=== PATIENT | female | born 1945 | race Caucasian/White ===

== ENCOUNTER 2023-11-06 13:36 | Inpatient (IN) | payer OTHER, SELFPAY ==
[2023-11-05] VITALS (8 sets, daily range): BP systolic 125–160; BP diastolic 50–87; BMI 46.3; BMI 45.5
--- NOTE | 2023-11-05 09:58 | ED.GENMED ---
History of Present Illness
<CLEOPATRA Good - Last Filed: 11/05/23 12:42>
General
Chief Complaint: Cough
Source: patient
Exam Limitations: none
Time Seen by Provider: 11/05/23 09:49
Nursing documentation reviewed up to this point in time: agreed with
Travel History
Have you had any contact with someone who has COVID-19?: No
Do you have any symptoms of coronavirus? Fever > 100 degrees, chills, cough, shortness of breath, sore throat, loss of taste or smell, muscle aches, or headache?: Yes
Symptoms:: sob
History of Present Illness
History of Present Illness:
78 yr. old female with past medical history of asthma sleep apnea hypertension diabetes presents to the ER for evaluation. Patient started with cough for the past week and subjective chills. She reports she has been under a lot of stress her
daughter recently from cancer 1 week ago. She has been exposed to a lot of family at her house. This morning she did cough up blood which the prompted her to come to the ER. SHe reports she coughed up what she describes as strands of
dark colored and some bright red blood. She does feel short of breath.
Past History
<CLEOPATRA Good - Last Filed: 11/05/23 12:42>
Past History
ED Past Medical History: HTN, Hypercholesterolemia and NIDDM
ED Past Surgical History: Gynecological and Orthopedic
Social History
Living: with family
Review of Systems
<CLEOPATRA Good - Last Filed: 11/05/23 12:42>
Review of Systems
Allergies reviewed?: Yes
Other source history: family
All Other Systems: ROS reviewed and negative except as documented in HPI and ROS
Constitutional: Reports fever (Subjective fevers) and chills
Respiratory: Reports cough, hemoptysis and trouble breathing
Cardiac: Reports no symptoms
ABD/GI: Reports no symptoms
: Reports no symptoms
Musculoskeletal: Reports no symptoms
Skin: Reports no symptoms
Neurological: Reports no symptoms
Psychiatric: Reports no symptoms
Phy Exam
<CLEOPATRA Good - Last Filed: 11/05/23 12:42>
General Physical Exam
General Presentation: no apparent distress
General age: appears stated age
General Skin: warm and dry
General Mental: alert
General Hydration: appears well hydrated
Cardiovascular Exam
Cardiovascular Exam: regular rate/rhythm, no murmur and normal peripheral pulses
Pulmonary Exam
Pulmonary Exam: generalized wheezing and other (coughing )
Neurological Exam
Neurological Exam: alert and oriented x3
Musculoskeletal Exam
Musculoskeletal Exam: full ROM
Skin Exam
Skin Exam: normal color and warm/dry
Psychiatric Exam
Psychiatric Exam: normal mood/affect
Course
<CLEOPATRA Good - Last Filed: 11/05/23 12:42>
Orders/Labs/Results
Orders:
Orders
11/05/23 09:51
Electrocardiogram (*1) Urgent
Reason for Study: Other
Other Reason for Exam: Possible Sepsis
EKG- Treatment ONCE
IV Insert/Care/Rem.- Treatment PRN
11/05/23 09:52
CXR Port [CR Chest Portable - 1 View] Urgent
Comment:
Reason For Exam: sob hemoptysis
Reason Study Needs to be Portable: Unable to Transport
11/05/23 10:00
Comprehensive Metabolic Panel Urgent
Blood Culture Q30M
COURT Source: Blood/Venous
Specimen Description:
Comment: FROM 2 SEPARATE SITES
11/05/23 10:01
COVID-19 Antigen Urgent
Source: Nasal Swab
Complete Blood Count/With Diff Urgent
Lactic Acid Q4H
Comment: ON ICE, CANCEL 2ND ORDER IF FIRST LACTIC ACID LEVEL <2
Influenza A+B Rapid Molecular Urgent
COURT Source: Nasal Swab
Specimen Description:
11/05/23 10:07
Albuterol Nebs [Ventolin Nebules] 2.5 mg INH R NOW STA
11/05/23 10:12
Dexamethasone Sod Phosphate [Decadron] 6 mg IV NOW STA
11/05/23 10:30
CT Chest Pe Study Urgent
Comment:
Reason For Exam: Short of breath/hemoptysis
0.9% Sodium Chloride 500 ml [Nss] 500 ml IV BOLUS
Dexamethasone Sod Phosphate [Decadron] 4 mg IV NOW STA
11/05/23 10:37
Blood Culture Q30M
COURT Source: Blood/Venous
Specimen Description:
Comment: FROM 2 SEPARATE SITES
Abnormal Lab Results
11/05/23 11/05/23
10:00 10:01
Abs Immat Gran (auto) 0.1 H 10^3/uL
(0-0.05)
Absolute Monos (auto) 0.7 H 10^3/uL
(0.1-0.6)
Immature Gran % 0.9 H %
(0-0.5)
Lymphocytes % 17.8 L %
(20.5-51.1)
Monocytes % 9.5 H %
(1.7-9.3)
Sodium 130 L mmol/L
(135-145)
Creatinine 0.5 L mg/dL
(0.6-1.0)
Glucose 266 H mg/dl
(70-99)
AST 38 H U/L
(14-36)
11/05/23 10:01
11/05/23 10:00
Vital Signs
Initial and Last Documented VS:
Initial Vital Signs
Temp Pulse Resp BP Pulse Ox
101.1 F H 100 18 160/86 93
11/05/23 09:45 11/05/23 09:45 11/05/23 09:45 11/05/23 09:45 11/05/23 09:45
Last Documented Vital Signs
Temp Pulse Resp BP Pulse Ox
99.7 F 93 17 125/56 94
11/05/23 11:41 11/05/23 12:15 11/05/23 12:15 11/05/23 12:00 11/05/23 12:15
Research Psychologist consulted with Physician
Research Psychologist consulted with physician?: Yes
Name of Physician Consulted: Kvng
<Bruce Calderon MD - Last Filed: 11/05/23 10:32>
Orders/Labs/Results
Orders:
Orders
11/05/23 09:51
Electrocardiogram (*1) Urgent
Reason for Study: Other
Other Reason for Exam: Possible Sepsis
EKG- Treatment ONCE
IV Insert/Care/Rem.- Treatment PRN
11/05/23 09:52
CXR Port [CR Chest Portable - 1 View] Urgent
Comment:
Reason For Exam: sob hemoptysis
Reason Study Needs to be Portable: Unable to Transport
11/05/23 10:00
Comprehensive Metabolic Panel Urgent
Blood Culture Q30M
COURT Source: Blood/Venous
Specimen Description:
Comment: FROM 2 SEPARATE SITES
11/05/23 10:01
COVID-19 Antigen Urgent
Source: Nasal Swab
Complete Blood Count/With Diff Urgent
Lactic Acid Q4H
Comment: ON ICE, CANCEL 2ND ORDER IF FIRST LACTIC ACID LEVEL <2
Influenza A+B Rapid Molecular Urgent
COURT Source: Nasal Swab
Specimen Description:
11/05/23 10:07
Albuterol Nebs [Ventolin Nebules] 2.5 mg INH R NOW STA
11/05/23 10:12
Dexamethasone Sod Phosphate [Decadron] 6 mg IV NOW STA
11/05/23 10:30
CT Chest Pe Study Urgent
Comment:
Reason For Exam: Short of breath/hemoptysis
0.9% Sodium Chloride 500 ml [Nss] 500 ml IV BOLUS
Dexamethasone Sod Phosphate [Decadron] 4 mg IV NOW STA
11/05/23 10:37
Blood Culture Q30M
COURT Source: Blood/Venous
Specimen Description:
Comment: FROM 2 SEPARATE SITES
Abnormal Lab Results
11/05/23 11/05/23
10:00 10:01
Abs Immat Gran (auto) 0.1 H 10^3/uL
(0-0.05)
Absolute Monos (auto) 0.7 H 10^3/uL
(0.1-0.6)
Immature Gran % 0.9 H %
(0-0.5)
Lymphocytes % 17.8 L %
(20.5-51.1)
Monocytes % 9.5 H %
(1.7-9.3)
Sodium 130 L mmol/L
(135-145)
Creatinine 0.5 L mg/dL
(0.6-1.0)
Glucose 266 H mg/dl
(70-99)
AST 38 H U/L
(14-36)
11/05/23 10:01
11/05/23 10:00
Vital Signs
Initial and Last Documented VS:
Initial Vital Signs
Temp Pulse Resp BP Pulse Ox
101.1 F H 100 18 160/86 93
11/05/23 09:45 11/05/23 09:45 11/05/23 09:45 11/05/23 09:45 11/05/23 09:45
Last Documented Vital Signs
Temp Pulse Resp BP Pulse Ox
99.7 F 93 17 125/56 94
11/05/23 11:41 11/05/23 12:15 11/05/23 12:15 11/05/23 12:00 11/05/23 12:15
<CLEOPATRA Good - Last Filed: 11/05/23 12:42>
MDM/Problems Addressed
Differential Diagnosis Includes:
Not limited to pneumonia bronchitis CHF PE
MDM/Problems Addressed:
Patient is a 78-year-old female with cough for the past days subjective chills shortness of breath and had an episode of mopped assist at home. Patient arrives mildly hypoxic and febrile. Patient was given neb on arrival. Patient's white count is
7.7 x-ray obtained however with hemoptysis shortness of breath CT was ordered which is negative for PE but does show patchy consolidations of the right lower lobe infection most likely differential consideration. Patient the ED physician. Patient
was given only very low-dose of steroids as she reports she has had hallucinations with steroids in the past. Patient on reexam feeling much better decreased wheezing much more comfortable. Will give IV Rocephin and Zithromax to treat for commune
acquired pneumonia and admit.
<CLEOPATRA Good - Last Filed: 11/05/23 12:42>
*Radiology
Radiology exam reviewed: radiology read reviewed (PE PE study negative for PE patchy consolidation throughout the right lower lobe right lower lobe moderate bronchial wall thickening right hilar adenopathy infection less likely differential
consideration possible inflammatory etiologies)
*Pulse Oximetry
Patient hypoxic: yes
*EKG
Heart Rate: 98
Rate: normal
Rhythm: sinus
Ischemia: non-specific ST changes
*Critical Care Note
Total Time (30-74mins, 75-104mins- exclusive of procedures): Not Applicable
ED Attending Note
<CLEOPATRA Good - Last Filed: 11/05/23 12:42>
-
Portions of this chart may have been created with voice recognition software.� Occasional wrong word or��sound alike� substitutions may have occurred due to the inherent limitations of voice recognition software.
<Bruce Calderon MD - Last Filed: 11/05/23 10:32>
ED Attending Note
Patient seen and examined by attending physician: Yes
I performed the substantive portion of visit, reviewed & personally made and approve the management plan that is documented in note by myself or WILLAM.: Yes
ED Attending Note:
Patient exposed to grandkids with respiratory symptoms this past week. Started developing cough congestion 3 to 4 days ago. Worsening cough and some shortness of breath today with hypoxia at home. Some hemoptysis this morning. Small glob of
blood. Some mild right posterior back pain also.
GENERAL: Alert and oriented. Mild tachypnea at rest
EYE: Orbits normal.
NECK: Supple, no significant adenopathy.
ENT: Pharynx without erythema
CARDIAC: Regular rate and rhythm without any obvious murmurs.
LUNGS: Mild tachypnea. Diffuse expiratory wheezing and decreased breath sounds diffusely with mild rhonchi at the right base
ABDOMEN: Soft, without focal tenderness or distention
NEUROLOGICAL: Alert and oriented , grossly non-focal
SKIN: Warm and dry, no rash or lesion, no discoloration, skin intact.
MUSCULOSKELETAL: No edema,no deformity.Good color
PSYCH: Normal and appropriate interaction.
Likely infectious in etiology. History of asthma. Albuterol. Discussed steroids with patient. Very concerned about hallucinogenic issues with steroids. Will start a very low-dose. This was agreed upon by the patient. Chest x-ray reviewed by
myself and radiology. They felt it was negative. With hemoptysis right pleuritic back pain and shortness of breath PE study will be ordered.
Discharge Plan
Departure
Patient Disposition: Admit
Date of Disposition: 11/05/23
Time of Disposition: 12:41
Admit to: Telemetry
Admit to doctor: hospitalist
Presentation/result/management discussed w/ accepting MD/DO: Hospitalist
Patient with high blood pressure during this ER visit?: Yes
Covid-19: Not Applicable
Discharge Problem:
Pneumonia, Hemoptysis
Referrals:
Tanisha Perdue DO [Family Provider] -
Interventions
Interventions:
*Risk Screen - Suicide Last Done: 11/05/23 10:06
*General Assessment Last Done: 11/05/23 10:06
*Neglect/Abuse Screening Last Done: 11/05/23 10:06
*ED COVID-19 Vaccine History Last Done: 11/05/23 10:06
ED- Pulmonary Assessment Last Done: 11/05/23 10:06
Discharge Date and Time
Print Language: SETSWANA
[2023-11-05] MEDS: VENTOLIN NEBULES 2.5 MG INH (10:12)
[2023-11-05 10:15] LABS: % Basophils 0.4 % (0-2); % Eosinophils 0.9 % (0-6); % Immature Granulocytes 0.9 % (0-0.5); % Lymphocytes 17.8 % (20.5-51.1); % Monocytes 9.5 % (1.7-9.3); % Neutrophils 70.5 % (42.2-75.2); Absolute Eosinophils 0.1 10^3/uL (0-0.7); Absolute Immature Granulocytes 0.1 10^3/uL (0-0.05); Absolute Lymphocytes 1.4 10^3/uL (1.2-3.4); Absolute Monocytes 0.7 10^3/uL (0.1-0.6); Absolute Neutrophils 5.4 10^3/uL (1.4-6.5); Hematocrit 38.2 % (37.0-47.0); Hemoglobin 13.4 g/dL (12.0-16.0); Mean Corp Hgb Conc. 35.1 g/dL (33.0-37.0); Mean Corpuscular Hgb 29.3 pg (27.0-31.0); Mean Corpuscular Volume 83.6 fL (81.0-99.0); Mean Platelet Volume 8.7 fL (7.4-10.4); Nucleated Red Blood Cells % 0 %; Platelet Count 203 10^3/uL (130-400); Red Blood Cell Count 4.57 10^6/uL (4.20-5.40); Red Cell Dist. Width 12.8 % (11.5-14.5); White Blood Cell Count 7.7 10^3/uL (4.8-10.8)
[2023-11-05 10:26] LABS: Lactic Acid 1.9 mmol/L (0.7-2.0)
[2023-11-05 10:27] LABS: ALT (SGPT) 35 U/L (0-35); AST (SGOT) 38 U/L (14-36); Albumin 4.1 g/dl (3.5-5.0); Alkaline Phosphatase 80 U/L (38-126); Blood Urea Nitrogen 14 mg/dl (7-17); Calcium 9.3 mg/dl (8.4-10.2); Carbon Dioxide 24 mmol/L (22-30); Chloride 98 mmol/L (98-107); Estimated Creatinine Clearance 77 ml/min; Glucose 266 mg/dl (70-99); Potassium 4.1 mmol/L (3.5-5.1); Sodium 130 mmol/L (135-145); Total Bilirubin 0.6 mg/dl (0.2-1.3); eGFR > 60.00
[2023-11-05 10:29] LABS: COVID-19 Antigen Negative (Negative)
[2023-11-05] MEDS: NSS 500 IV (11:06)
[2023-11-05] MEDS: DECADRON 4 MG IV (11:06)
[2023-11-05] MEDS: ZITHROMAX INFUSION 250 IV (12:52)
[2023-11-05] MEDS: ROCEPHIN 1000 MG IV (12:52)
--- NOTE | 2023-11-05 12:56 | HPS.HSE ---
Family Physician
-
Family Physician: Errol Perdue, DO
Chief Complaint
-
SOB , hemoptysis
History of Present Illness
The patient is a 78 yo woman with PMH significant for asthma, sleep apnea, Type 2 DM, HTN, brain hemangioma, presents to the ED due to cough for the past 1 week associated with chills and an episode of coughing up blood this morning. She describes
it as a dark strand with some bright red blood. She has associated dyspnea. Her daughter from cancer recently and is under extreme stress. She said she has never had hemoptysis before, and thought it may be related to dry throat/taking nebs at
home for wheezing.
Positive ROS: fever, cough, SOB
Negative ROS: no CP, no n/v/d, no abdominal pain, no dysuria, no other bleeding/bruising
Temp 101.1 in ED. Pulse 100. Pulse oximetry 93% RA.
ED txt:
Neb, Dexa 6 mg IV once, CT chest, IV NS 500 mL bolus
Medical History
Past Medical History
Past Medical History: Reports HTN, Hypercholesterolemia and NIDDM
Past Surgical History: Reports Gynocological and Orthopedic
Social History
Tobacco: Non-smoker
Alcohol: None
Drug: None
Personal:
Living: With Family
Family History
Family History: Not pertinent
Allergies / Home Medications
Allergies reflects when Allergies were last updated in [employer].
Home Medications with original date entered in [employer]
Allergy/Medication List:
Allergies
Allergy/AdvReac Type Severity Reaction Status Date / Time
propoxyphene Allergy Unknown Verified 11/05/23 09:48
NOT.[id number] - Not Allergy Unknown Uncoded 11/05/23 09:48
Converted 38. See Text.
steroids Allergy Unknown Uncoded 11/05/23 10:19
Home Medications
Nutraful 1 cap PO DAILY 04/28/24
alfalfa 250 mg tablet 250 mg PO DAILY 11/05/23
aspirin 81 mg tablet,delayed release 81 mg PO DAILY 11/05/23
cholecalciferol (vitamin D3) 25 mcg (1,000 unit) tablet (Vitamin D3) 25 mcg PO DAILY 11/05/23
cinnamon bark 500 mg capsule (Cinnamon) 500 mg PO DAILY 11/05/23
fluoxetine 10 mg capsule (Prozac) 10 mg PO DAILY 11/05/23
metformin 500 mg tablet 1,500 mg PO DAILY 11/05/23
nifedipine 30 mg tablet,extended release 24 hr 30 mg PO DAILY 11/05/23
omega [id number]-[id number]-fish oil 1,000 mg (120 mg-180 mg) capsule (Fish Oil) 1 cap PO DAILY 11/05/23
valsartan 80 mg tablet 80 mg PO DAILY 11/05/23
Review of Systems
-
A 12 point ROS was completed and negative except as noted: Yes
Physical Exam
Vital Signs
Vital Signs
Temp Pulse Resp BP Pulse Ox
99.7 F 93 17 125/56 94
11/05/23 11:41 11/05/23 12:15 11/05/23 12:15 11/05/23 12:00 11/05/23 12:15
Physical Exam
General: Well Developed, Well Nourished, No Apparent Distress, Comfortable and Conversant
HEENT: NormoCephalic, Anicteric and Moist mucous membranes
Respiratory: Wheezes (diffuse end-expiratory wheeze b/l mid-lung down) and Non Labored Respirations
Cardiac: S1/S2 and Regular Rhythm
GI: Soft, Non Tender and Non Distended
Musculoskeletal: No Clubbing, No Cyanosis and No Edema
Skin: Warm and Dry
Neuro: No Motor Deficits and Nonfocal/grossly intact
Psych: Calm
Laboratory Results
-
11/05/23 10:01
11/05/23 10:00
Laboratory Results
Lactic Acid Cancelled 11/05/23 14:00
Total Bilirubin 0.6 mg/dl (0.2-1.3) 11/05/23 10:00
AST 38 U/L (14-36) H 11/05/23 10:00
ALT 35 U/L (0-35) 11/05/23 10:00
Alkaline Phosphatase 80 U/L (38-126) 11/05/23 10:00
Data Reviewed
-
Diagnostic Radiology: Image Personally Visualized and interpreted and Report Reviewed by me (Changes of bronchiolitis and patchy consolidation throughout the right lower lobe. Right lower lobe moderate bronchial wall thickening. Right hilar
adenopathy. Infection is the most likely differential consideration.)
CT Scan: Image Personally Visualized and interpreted and Report Reviewed by me
Medical Tests (Nuc Med, Echo, EKG etc): Image Personally Visualized and interpreted and Report Reviewed by me
Impression/Plan
-
IMPRESSION:
#CAP, RLL consolidation, concern for gram negative bacterial pneumonia, episode of small amount hemoptysis
#Asthma exacerbation
CT Chest No PE, Changes of bronchiolitis and patchy consolidation throughout the right lower lobe. Right lower lobe moderate bronchial wall thickening. Right hilar adenopathy. Infection is the most likely differential consideration
-No chest pain, low suspicion for ACS, noted EKG no evidence for STEMI, NSR rate 98, cannot rule out age-indeterminant anterior infarct, no chest pain, will check troponin & monitor
-monitor repeat hemoglobin, check INR, await cultures
-Continue IV Rocephin, IV Azithromycin, sputum cx pending, MUSTAPHA pending, blood cxs
-Duo-Nebs prn
-low dose steroids IV Dexa 4 mg once daily (received in ED first dose) due to patient request-has hallucinations with steroids she describes as 'feeling out of it'
-monitor pulse oximetry
# Mild asymptomatic Hyponatremia 130
-repeat labs , gentle IVF hydration
#Hyperglycemia, type 2 DM
-Glucose 266
-cont metformin
-SSI
#HTN
-continue home meds with hold paremeters, Valsartan and Nifedipine
#Chronic pain
-takes prn Vicodin 2.5 mg , gave one dose in ED for headache and monitor
#Psych
-continue Prozac
Full Code
DVT proph - PCDs
[2023-11-05] MEDS: NORCO 5/325 0.5 TABLET PO (13:44)
[2023-11-05 14:33] LABS: INR 1.02; PT 13.2 Sec (11.4-14.6)
[2023-11-05 14:47] LABS: Troponin I < 0.012 ng/ml
[2023-11-05] MEDS: NSS 1000 IV (15:47)
[2023-11-05] MEDS: DUONEB 3 ML INH ×2 (15:48→19:29)
[2023-11-05 16:26] LABS: Glucose - Point of Care 303 mg/dl (70-99)
--- NOTE | 2023-11-05 16:39 | TRANSFER ---
Pt admitted into room 435-2 from ED. Pt ambulated from stretcher to bed with x1 assist. AAOx3, no complaints at this time. NSS running at 80ml/hr per MAR. Patient oriented to room and plan of care.
[2023-11-05] MEDS: GLUCOPHAGE 500 MG PO (17:05)
[2023-11-05] MEDS: NOVOLOG FLEXPEN-LOW RESISTANCE 4 UNITS SC (17:05)
[2023-11-05 21:37] LABS: Glucose - Point of Care 352 mg/dl (70-99)
[2023-11-05] MEDS: NOVOLOG FLEXPEN 10 UNITS SC (23:12)
[2023-11-05] MEDS: TYLENOL 650 MG PO (23:12)
[2023-11-05] MEDS: PROZAC 10 MG PO (23:12)
[2023-11-06 03:26] VITALS: BP 138/75
[2023-11-06 07:24] LABS: % Basophils 0.6 % (0-2); % Eosinophils 0.3 % (0-6); % Immature Granulocytes 1.1 % (0-0.5); % Lymphocytes 26.3 % (20.5-51.1); % Monocytes 11.4 % (1.7-9.3); % Neutrophils 60.3 % (42.2-75.2); Absolute Immature Granulocytes 0.1 10^3/uL (0-0.05); Absolute Lymphocytes 1.7 10^3/uL (1.2-3.4); Absolute Monocytes 0.7 10^3/uL (0.1-0.6); Absolute Neutrophils 3.9 10^3/uL (1.4-6.5); Hematocrit 36.8 % (37.0-47.0); Hemoglobin 12.6 g/dL (12.0-16.0); Mean Corp Hgb Conc. 34.2 g/dL (33.0-37.0); Mean Corpuscular Hgb 29.3 pg (27.0-31.0); Mean Corpuscular Volume 85.6 fL (81.0-99.0); Mean Platelet Volume 9.1 fL (7.4-10.4); Nucleated Red Blood Cells % 0 %; Platelet Count 207 10^3/uL (130-400); Red Cell Dist. Width 12.8 % (11.5-14.5); White Blood Cell Count 6.5 10^3/uL (4.8-10.8)
[2023-11-06] MEDS: TYLENOL 650 MG PO ×2 (07:42→11:21)
[2023-11-06 07:43] LABS: Glucose - Point of Care 163 mg/dl (70-99)
[2023-11-06] MEDS: DUONEB 3 ML INH ×3 (07:58→15:36)
[2023-11-06 08:00] VITALS: BP 131/73
[2023-11-06 08:09] LABS: ALT (SGPT) 27 U/L (0-35); AST (SGOT) 29 U/L (14-36); Albumin 3.7 g/dl (3.5-5.0); Alkaline Phosphatase 60 U/L (38-126); Blood Urea Nitrogen 16 mg/dl (7-17); Calcium 9.4 mg/dl (8.4-10.2); Carbon Dioxide 21 mmol/L (22-30); Chloride 106 mmol/L (98-107); Estimated Creatinine Clearance 76 ml/min; Glucose 153 mg/dl (70-99); Potassium 3.8 mmol/L (3.5-5.1); Sodium 136 mmol/L (135-145); Total Bilirubin 0.6 mg/dl (0.2-1.3); Total Protein 6.5 g/dl (6.3-8.2); eGFR > 60.00
[2023-11-06 09:30] LABS: Glycohemoglobin (HgbA1c) 9.2 % (4.0-5.6)
[2023-11-06] MEDS: NOVOLOG FLEXPEN-LOW RESISTANCE 1 UNITS SC (11:16)
[2023-11-06] MEDS: DECADRON 4 MG IV (11:17)
[2023-11-06] MEDS: PROCARDIA XL (EXTENDED RELEASE) 30 MG PO (11:18)
[2023-11-06] MEDS: DIOVAN 80 MG PO (11:20)
[2023-11-06] MEDS: GLUCOPHAGE 500 MG PO ×2 (11:20→12:17)
[2023-11-06] MEDS: PROZAC 10 MG PO (11:22)
[2023-11-06 11:32] VITALS: BP 145/66
[2023-11-06] MEDS: ROCEPHIN 1000 MG IV (12:16)
[2023-11-06] MEDS: ZITHROMAX INFUSION 250 IV (12:17)
[2023-11-06] MEDS: STERILE WATER FOR INJECTION 10 ML IV (12:18)
--- NOTE | 2023-11-06 12:40 | CM ---
Addendum entered by Kaylynn Cortes 11/06/23 12:46:
Pt lifes with and is able to manage at home without assistance, although due to needing b/l TKA she crawls up the steps to the full bathroom and is able to walk down the steps using railing. No steps to enter the home. Perri uses a
transport chair for longer distances.
PCP is Dr. Perdue
Pharmacy is [facility] [address], [place] [address]
PLAN: Home with family, no needs.
Original Note:
Perri was admitted with pneumonia which she attributes to her grandchildren visiting. Perri's daughter last week and plans for her [facility] [place] are in progress for Friday, November 10, 2023. Pt provided with a copy of the [facility] notice which she
signed. No concerns for food insecurity or financial resources. Grief counseling discussed to which Perri is receptive and will consider after she buries her daughter.
No additional resouce needs identified.
Plan is for discharge to home with no services.
--- NOTE | 2023-11-06 13:27 | W.PN.HOSP.TC ---
Addendum entered and electronically signed by Mj Duque MD 11/06/23 14:49:
Correction to pulmonary exam: B/L rhonchi and expiratory wheezes
Original Note:
Today's Communication/Plan
-
see bold
Assessment / Plan
Assessment / Plan
Gen: NAD, AAOx3.
Eyes: EOMI, PERRLA, no scleral icterus.
Neck: supple.
CV: RRR, +S1/S2, no m/r/g.
Resp: CTAB, no rales, wheezes, or rhonchi.
Abd: +BS, soft, NT, ND
Skin: No rashes.
Neuro: CN 2-12 intact, non-focal.
Psych: Normal mood and affect.
CTA chest:
1. Limited secondary to contrast bolus timing and respiratory motion artifact. There is no central or segmental pulmonary embolus. Within the limitations, no subsegmental embolus is identified.
2. Changes of bronchiolitis and patchy consolidation throughout the right lower lobe. Right lower lobe moderate bronchial wall thickening. Right hilar adenopathy. Infection is the most likely differential consideration. Inflammatory etiologies
could also have a similar appearance.
Sepsis (POA) and acute asthma exac due to RLL PNA:
-with small amount of hemoptysis
-saturating well on RA
-cont Rocephin/Azithro for now
-currently on decadron
-c/s pulm
DM2:
-stop Metformin with IV contrast on admission.
-change SSI to high-resistance, cont accuchecks/diabetic diet
-a1c 9.2%, patient will need basal bolus insulin until A1c is less than 9%
-start Lantus 10U HS, premeal Novolog 3U
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
Other problems:
Hyponatremia, mild, resolved
Essential HTN: cont Procardia/Diovan
Chronic pain with chronic opioid use
Morbid obesity due to excess calories: BMI 45.5, encourage weight loss, affects all aspects of care.
Family updated at bedside.
FULL/SCDs
Total time spent on today's encounter was 50 minutes which included time spent in counseling the patient/family regarding diagnosis and treatment plan as listed above, goals of care, and symptom management. Case was discussed with nursing staff,
specialists, and care coordinators/case management. All labs and imaging personally reviewed by me. Remainder the time spent in detailed review of previous records, lab data, imaging, and other medical provider documentation.
Anticipated Discharge: 24 - 48 hours
Subjective/Interval History
-
Date of Service: November 06, 2023
Epigastric pain from coughing. Denies SOB.
Objective Data
-
Labs:
Laboratory Results
11/06/23
06:34
WBC 6.5
Hgb 12.6
Hct 36.8 L
Plt Count 207
Sodium 136
Potassium 3.8
Chloride 106
Carbon Dioxide 21 L
BUN 16
Creatinine 0.5 L
Glucose 153 H
Calcium 9.4
Total Bilirubin 0.6
AST 29
ALT 27
Alkaline Phosphatase 60
Vital Signs:
Vital Signs
Temp Pulse Resp BP Pulse Ox
98.4 F 78 18 145/66 95
11/06/23 11:32 11/06/23 11:33 11/06/23 11:33 11/06/23 11:32 11/06/23 11:33
I&O
11/05/23 11/06/23 11/07/23
06:59 06:59 06:59
Output Total 1000 / 1000
Balance -1000 / -1000
[2023-11-06 13:51] LABS: Glucose - Point of Care 275 mg/dl (70-99)
--- NOTE | 2023-11-06 16:12 | CON.PUL ---
Consultation
Consultation Request
Date/Time Consultation Requested: 11/05
Date/Time Consultation Performed: 11/05
Reason for Consultation: Hemoptysis, asthma
Medical History
-
History of Present Illness:
History obtained from the patient, at bedside and reviewing outpatient and inpatient records. Patient is a 78-year-old female with history of sleep apnea not treated, longstanding asthma, history of pneumonia x 7, who states she has had a
chronic cough for many years. However over the past 7 to 10 days she developed increased chest congestion, subjective fevers and chills. Her daughter recently about 2 weeks ago from cancer and she has been exposed to a lot of the
younger members of the family. She thinks she may have picked up something from her grandchildren. She was initially recommended to go to the hospital by her primary, but she refused. She then proceeded to cough up about a teaspoon of bright red
blood mixed with dark clots which prompted her to come into the ED. Upon arrival, temperature 101.1, pulse 100, breathing at 18, blood pressure 160/86, 93%. Cultures were drawn. She was given IV fluids, IV steroids. CT chest was obtained to rule
out PE which was negative. She had evidence of right lower lobe pneumonia and adenopathy which we are asked to comment on.
Since admission, she has not coughed up any more blood. She feels somewhat improved however her productive cough continues. She has some mild left lower chest, left upper abdominal discomfort. She thinks it is from a prior hernia. She is
essentially nonambulatory, limited by back and knee pain. She can only walk about 10 steps and is otherwise wheelchair-bound. Her was present to corroborate
.
PMH: Hypertension, hypercholesterolemia, diabetes, history of sleep apnea not treated, history of multiple pneumonias/bronchial infections x 7, history of asthma.
Past Medical History
Past Medical History: None (See above)
Past Surgical History: None (See above)
Social History
Tobacco: Non-smoker
Alcohol: None
Drug: None
Personal:
Living: With Family
Employment: Retired
Family History
Family History: Other (2 children healthy. Both mother and father from diabetes, heart disease. No family history of lung cancer, blood clots)
Allergies / Home Medications
Allergies
Allergy/AdvReac Type Severity Reaction Status Date / Time
acetaminophen [From Percocet] Allergy Unknown Verified 11/05/23 13:31
Corticosteroids Allergy pt says Verified 11/05/23 13:17
(Glucocorticoids) she
hallucinates
oxycodone [From Percocet] Allergy Unknown Verified 11/05/23 13:31
propoxyphene Allergy Unknown Verified 11/05/23 09:48
Home Medications
�Medication �Instructions �Recorded �Confirmed �Last Taken �Type
Nutraful 1 cap PO DAILY Supplement 11/05/23 11/05/23 Unknown History
alfalfa 250 mg tablet 250 mg PO DAILY Supplement 11/05/23 11/05/23 Unknown History
aspirin 81 mg tablet,delayed 81 mg PO DAILY Blood Clot 11/05/23 11/05/23 Unknown History
release Prevention/Tx
cholecalciferol (vitamin D3) 25 25 mcg PO DAILY Supplement 11/05/23 11/05/23 Unknown History
mcg (1,000 unit) tablet (Vitamin
D3)
cinnamon bark 500 mg capsule 500 mg PO DAILY Supplement 11/05/23 11/05/23 Unknown History
(Cinnamon)
dextromethorphan-guaifenesin 10 5 ml PO Q4HPRN PRN cough 11/05/23 11/05/23 11/04/23 History
mg-100 mg/5 mL oral liquid (Safe
Tussin DM)
fluoxetine 10 mg capsule (Prozac) 10 mg PO DAILY depression/anxiety 11/05/23 11/05/23 Unknown History
hydrocodone 5 mg-acetaminophen 325 0.5 tab PO Q6H PRN headache 11/05/23 11/05/23 11/05/23 History
mg tablet
metformin 500 mg tablet 1,500 mg PO DAILY Diabetes 11/05/23 11/05/23 Unknown History
nifedipine 30 mg tablet,extended 30 mg PO DAILY Blood Pressure 11/05/23 11/05/23 Unknown History
release 24 hr
omega 3-die-ico-fish oil 1,000 mg 1 cap PO DAILY Supplement 11/05/23 11/05/23 Unknown History
(120 mg-180 mg) capsule (Fish Oil)
valsartan 80 mg tablet 80 mg PO DAILY Blood Pressure 11/05/23 11/05/23 11/05/23 History
Review of Systems
-
All other systems: Negative unless noted
Vitals / Labs / Diagnostic Testing
Vital Signs
Temp Pulse Resp BP Pulse Ox
98.4 F 79 16 145/66 93
11/06/23 11:32 11/06/23 15:38 11/06/23 15:38 11/06/23 11:32 11/06/23 15:38
Lab Data
11/06/23 06:34
11/06/23 06:34
Microbiology
11/05/23 17:56 Sputum Respiratory Culture - Final
11/05/23 17:56 Sputum Gram Stain - Final
11/05/23 10:37 Blood/Venous Blood Culture - Preliminary
No Growth in 24 hours- Final report to follow
11/05/23 10:00 Blood/Venous Blood Culture - Preliminary
No Growth in 24 hours- Final report to follow
11/05/23 10:01 Nasal Swab Influenza Types A & B (ASTRID) - Final
Negative for Influenza A & B, NAAT
Negative results must be combined with clinical observations
and patient history.
Nucleic Acid Amplification test (NAAT)performed on the
[employer] platform.
Diagnostic Testing:
Physical Exam
-
HEENT: Normocephalic, Anicteric and Other (Large neck)
Cardiovascular: S1/S2, Regular Rhythm, Murmur (n), Rub (n), Peripheral Edema (n) and Calf Tenderness (n)
Respiratory: Wheeze (n), Rales (Right basilar), Rhonchi (n), Non-Labored Respirations and Other (Mild upper airway wheeze, no stridor)
GI: Soft, Non Distended (Morbidly obese) and Non Tender
Neurology: Awake, Alert and No Motor Deficits
Skin: Other (No clubbing, no cyanosis)
General: Comfortable
Assessment
-
78-year-old female with history of longstanding asthma, recurrent pneumonia/bronchitis, chronic cough, untreated sleep apnea, presents with 1 week of fevers, chills, chest congestion and hemoptysis. CT chest confirms right lower lobe pneumonia with
abnormal adenopathy. We are asked to comment on pulmonary findings
Community-acquired pneumonia, right lower lobe
Acute hemoptysis
Right hilar adenopathy
Fevers
Mild hyponatremia
Acute respiratory insufficiency
93% on room air
Hyperglycemia
Conditions present prior to admission
Hypertension
NIDDM
Sleep apnea, untreated
Wheelchair-bound
Back pain/knee pain
Chronic pain syndrome, opioid dependence
Morbid obesity
Plan/recommendations
At this time, patient appears to be nontoxic. She describes chronic symptoms for years but acute worsening in the last 1 week
Chest exam and imaging suggest pneumonia
Hemoptysis is a concern
Patient also profoundly sedentary, untreated sleep apnea
Under a lot of stress due to of daughter in the last week
Moving forward
Continue with empiric treatment for community-acquired pneumonia
Continue Rocephin/azithromycin
Quantify hemoptysis
Low threshold to discontinue Decadron.
Will discontinue after 11/06. It may help combat inflammatory changes which may be contributing to hemoptysis
Repeat sputum culture. Initial specimen suboptimal
Suspect right hilar adenopathy secondary to infectious process but will require follow-up imaging in 3 months
Reviewed importance of revisiting sleep apnea treatment
Revisited importance of following up with pulmonary (Pt had appt with Dr. Rivas 10/24 but canceled due to family)
DVT prophylaxis: Add Lovenox. Patient is high risk. Monitor hemoptysis
GI prophylaxis: Not indicated
Reviewed at length with patient and at bedside
All questions answered
We will follow
[2023-11-06 17:20] LABS: Glucose - Point of Care 392 mg/dl (70-99)
[2023-11-06] MEDS: NOVOLOG FLEXPEN 3 UNITS SC (17:44)
[2023-11-06] MEDS: NOVOLOG FLEXPEN-HIGH RESISTANCE 12 UNITS SC (17:45)
[2023-11-06] MEDS: NOVOLOG FLEXPEN-LOW RESISTANCE SC (18:21)
[2023-11-06] MEDS: DUONEB INH (19:33)
[2023-11-06 20:53] LABS: Hepatitis C Antibody Negative (Negative)
[2023-11-06 22:08] LABS: Glucose - Point of Care 244 mg/dl (70-99)
[2023-11-06] MEDS: LANTUS 0.100000000000000006 UNITS SC (22:26)
[2023-11-06 23:00] VITALS: BP 141/65
[2023-11-07 07:06] LABS: Glucose - Point of Care 175 mg/dl (70-99)
[2023-11-07] MEDS: DUONEB INH ×2 (07:54→15:52)
[2023-11-07 07:59] VITALS: BP 159/85
[2023-11-07] MEDS: PROZAC 10 MG PO (08:13)
[2023-11-07] MEDS: DIOVAN 80 MG PO (08:13)
[2023-11-07] MEDS: NOVOLOG FLEXPEN-HIGH RESISTANCE 2 UNITS SC (08:13)
[2023-11-07] MEDS: NOVOLOG FLEXPEN 3 UNITS SC ×2 (08:13→12:15)
[2023-11-07] MEDS: DECADRON 4 MG IV (08:13)
[2023-11-07] MEDS: PROCARDIA XL (EXTENDED RELEASE) 30 MG PO (08:13)
--- NOTE | 2023-11-07 09:46 | W.PN.HOSP.TC ---
Today's Communication/Plan
-
see bold
Assessment / Plan
Assessment / Plan
Gen: remains NAD, AAOx3.
Eyes: EOMI, PERRLA, no scleral icterus.
Neck: supple.
CV: remains RRR, +S1/S2, no m/r/g.
Resp: B/L wheezes
Abd: +BS, soft, NT, ND
Skin: No rashes.
Neuro: CN 2-12 intact, non-focal.
Psych: Normal mood and affect.
CTA chest:
1. Limited secondary to contrast bolus timing and respiratory motion artifact. There is no central or segmental pulmonary embolus. Within the limitations, no subsegmental embolus is identified.
2. Changes of bronchiolitis and patchy consolidation throughout the right lower lobe. Right lower lobe moderate bronchial wall thickening. Right hilar adenopathy. Infection is the most likely differential consideration. Inflammatory etiologies
could also have a similar appearance.
Sepsis (POA) and acute asthma exac due to RLL PNA:
-with small amount of hemoptysis
-saturating well on RA
-cont Rocephin/Azithro for now
-currently on decadron (last dose today)
-c/s pulm
DM2:
-stop Metformin with IV contrast on admission.
-cont hi-res SSI/accuchecks/diabetic diet
-a1c 9.2%, patient will need basal bolus insulin until A1c is less than 9%
-cont Lantus 10U HS, premeal Novolog 3U
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
Other problems:
Hyponatremia, mild, resolved
Essential HTN: cont Procardia/Diovan
Chronic pain with chronic opioid use
Morbid obesity due to excess calories: BMI 45.5, encourage weight loss, affects all aspects of care.
FULL/SCDs
Anticipated Discharge: 24 - 48 hours
Subjective/Interval History
-
Date of Service: November 07, 2023
Pt c/o wheezing. States her breathing is 'horrible.'
Objective Data
-
Vital Signs:
Vital Signs
Temp Pulse Resp BP Pulse Ox
97.7 F 72 18 159/85 95
11/07/23 07:59 11/07/23 07:59 11/07/23 07:59 11/07/23 07:59 11/07/23 07:59
I&O
11/06/23 11/07/23 11/08/23
06:59 06:59 06:59
Output Total 1000 / 1000
Balance -1000 / -1000
--- NOTE | 2023-11-07 10:00 | W.PN.PUL3 ---
Today's Communication / Plan
-
Transition to oral antibiotics
Would like home nebulizer set up with budesonide and DuoNebs twice a day (our office will facilitate)
Follow-up next week in pulmonary clinic
Disposition efforts
Assessment
-
78-year-old female with history of longstanding asthma, recurrent pneumonia/bronchitis, chronic cough, untreated sleep apnea, presents with 1 week of fevers, chills, chest congestion and hemoptysis. CT chest confirms right lower lobe pneumonia with
abnormal adenopathy. We are asked to comment on pulmonary findings
Community-acquired pneumonia, right lower lobe
Acute hemoptysis
Right hilar adenopathy
Fevers
Mild hyponatremia
Acute respiratory insufficiency
93% on room air
Hyperglycemia
Conditions present prior to admission
Hypertension
NIDDM
Sleep apnea, untreated
Wheelchair-bound
Back pain/knee pain
Chronic pain syndrome, opioid dependence
Morbid obesity
Plan/recommendations
At this time, patient appears to be nontoxic. She describes chronic symptoms for years but acute worsening in the last 1 week
Chest exam and imaging suggest pneumonia
Hemoptysis seems to have resolved
Wheezing continues but improved
Moving forward
Continue with empiric treatment for community-acquired pneumonia
Continue Rocephin/azithromycin transition to oral regimen for 7 to 10-day course
Quantify hemoptysis, has not had any since admission
Decadron discontinued 11/06
Start budesonide via nebulizer, continue DuoNebs 4 times a day
We will have our office facilitate nebulizer delivery and budesonide/DuoNebs
Repeat sputum culture. Initial specimen suboptimal
Suspect right hilar adenopathy secondary to infectious process but will require follow-up imaging in 3 months
Reviewed importance of revisiting sleep apnea treatment
Revisited importance of following up with pulmonary (Pt had appt with Dr. Rivas 10/24 but canceled due to family)
DVT prophylaxis: Patient on Lovenox. Patient is high risk. Monitor hemoptysis
GI prophylaxis: Not indicated
Okay for discharge. Follow-up instructions left in chart
We will need to be seen in the office next week by nurse practitioner
Will need follow-up imaging in 2 to 3 months to confirm resolution of adenopathy and pneumonia given hemoptysis
Reviewed with at bedside
Subjective Data
-
Date of Service:
Date of Service: November 07, 2023
Subjective:
Patient still feels poor. Wheezing and cough continues. Denies nausea, abdominal pain, denies further hemoptysis. Remains on room air
Objective Data
Data Reviewed
Vital Signs / I&O / Oxygen:
Vital Signs
Temp Pulse Resp BP Pulse Ox
97.7 F 72 18 159/85 95
11/07/23 07:59 11/07/23 07:59 11/07/23 07:59 11/07/23 07:59 11/07/23 07:59
Intake and Output
11/06/23 11/07/23 11/08/23
06:59 06:59 06:59
Output Total 1000 / 1000
Balance -1000 / -1000
SaO2 95
Physical Exam
General: Comfortable
HEENT: Normocephalic and Anicteric
Cardiovascular: S1-S2, Regular Rhythm, Murmur (n) and Rub (n)
Respiratory: Wheeze (Mild), Crackles (n), Rhonchi (Few at right base), Non-Labored Respirations and Stridor (n)
GI: Soft, Non Distended (Obese) and Non Tender
Neurology: Awake, Alert and No Motor Deficits (Able to sit up without assistance)
Skin: Jaundice (n), Rash (n) and Bruising (n)
Labs/Micro/Reports
Lab Data
11/06/23 06:34
11/06/23 06:34
Microbiology
11/05/23 17:56 Sputum Respiratory Culture - Final
11/05/23 17:56 Sputum Gram Stain - Final
11/05/23 10:37 Blood/Venous Blood Culture - Preliminary
No Growth in 24 hours- Final report to follow
11/05/23 10:00 Blood/Venous Blood Culture - Preliminary
No Growth in 24 hours- Final report to follow
11/05/23 10:01 Nasal Swab Influenza Types A & B (ASTRID) - Final
Negative for Influenza A & B, NAAT
Negative results must be combined with clinical observations
and patient history.
Nucleic Acid Amplification test (NAAT)performed on the
[employer] platform.
--- NOTE | 2023-11-07 11:29 | PN.DE.MGMTRT ---
Insulin Management
- -
11/07/2023 Diabetes Management Consult
Patient admitted 11/04 with cough, pneumonia. PMH asthma, sleep apnea, HTN, type 2 diabetes for 20+ years. Prior to admission was ordered metformin 500 mg TID but admits she really only took it BID, A1C is 9.2%, cr .5, EGFR >60.
Patient is awake, alert and oriented able to discuss diabetes management. She does NOT want INSULIN. She states the only reason her glucose is high is because her daughter and she has not been eating right, and because she was given steroids.
Patient states she does have a glucose monitor and was testing fasting only.
Advised patient with A1C @ 9.2 her glucose has been running high for the past 3 months, Insulin is needed at this time. She does not exercise and I explained she is dependent on medicine to control diabetes.
Diabetes Education consult ordered for insulin instruction.
Metformin is on HOLD due to contrast, will resume tomorrow at increased dose but BID. Glucose range yesterday 163 to 392. Diet changed from 1800 to 1600 calorie (patient is 5'9). Fasting glucose this AM 175. Will increase hs lantus to 13 units.
Pre lunch glucose today 280 will increase AC novolog to 9 units, first dose with lunch.
Provided diabetes education booklet and instructed to test glucose BID after discharge.
Diabetes History
- -
Type of Diabetes: 2 requiring insulin
Pre-Admission Diabetes Regimen
Lab Results
Hemoglobin A1c 9.2 % (4.0-5.6) H 11/06/23 06:34
Insulin Pump Settings
IP Diabetes Regimen
11/06/23 11/06/23 11/06/23
13:50 17:18 22:06
POC Glucose 275 H 392 H 244 H
11/07/23
07:05
POC Glucose 175 H
Patient Education
[2023-11-07 12:00] LABS: Glucose - Point of Care 280 mg/dl (70-99)
[2023-11-07] MEDS: DUONEB 3 ML INH ×2 (12:02→19:56)
[2023-11-07] MEDS: PULMICORT 0.5 MG INH ×2 (12:02→19:56)
[2023-11-07] MEDS: ROCEPHIN 1000 MG IV (12:15)
[2023-11-07] MEDS: STERILE WATER FOR INJECTION 10 ML IV (12:15)
[2023-11-07] MEDS: NOVOLOG FLEXPEN-HIGH RESISTANCE 7 UNITS SC ×2 (12:16→17:45)
[2023-11-07] MEDS: ZITHROMAX INFUSION 250 IV (13:12)
--- NOTE | 2023-11-07 13:30 | PTCARENOTE ---
Diabetes Education- A1C 9.2%. HAS A WORKING GLUCOMETER AT HOME AND TESTING FBS AND OCCASIONAL HS AT HOME PRIOR TO ADMISSION. Discussed action, onset, peak and duration of both rapid and long acting insulins. She is aware to use preferred insulins
and will ask case management for the preferred rapid acting and long acting insulins. Discussed symptoms and treatment of hypoglycemia. States she has experienced hypo in the past. Instructions with good return demonstration x 3 using insulin pen.
Initially resistant and overwhelmed, she became more comfortable with each return demonstration. Tearful as her daughter recently passes and her [employer] is this Monday. Comfort offered. Education booklet with phone number provided. Will
send information on outpt DSME classes. Update to DENNYS Keyes with suggestion to have Perri self inject once her lunch arrives to increase her confidence.
--- NOTE | 2023-11-07 13:57 | CM ---
Brief visit with Perri for check in to provide support. Perri feels her breathing is more difficult. She is concerned about ability to attend her daughters life celebration. Will continue to follow.
[2023-11-07] MEDS: LOVENOX 40 MG SC (17:20)
[2023-11-07 17:40] LABS: Glucose - Point of Care 296 mg/dl (70-99)
[2023-11-07] MEDS: NOVOLOG FLEXPEN 9 UNITS SC (17:45)
[2023-11-07] MEDS: SAFETUSSIN DM (SUGAR/ALCOHOL FREE) 200 MG PO (20:59)
[2023-11-07 21:06] LABS: Glucose - Point of Care 294 mg/dl (70-99)
[2023-11-07] MEDS: LANTUS 0.130000000000000004 UNITS SC (21:10)
[2023-11-07] MEDS: TYLENOL 1000 MG PO (21:29)
[2023-11-07 23:00] VITALS: BP 159/87
[2023-11-08 07:30] VITALS: BP 159/80
--- NOTE | 2023-11-08 07:36 | PN.DE.MGMTRT ---
Insulin Management
- -
11/08/2023: Diabetes Management F/U:
Patient admitted 11/04 with cough, pneumonia. PMH asthma, BRITTNEY, HTN, T2DM for 20+ years. 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
Patient is awake, alert and oriented able to discuss diabetes management. She does NOT want INSULIN. She states the only reason her glucose is high is because her daughter and she has not been eating right, and because she was given steroids.
Patient states she does have a glucose monitor and was testing fasting only. Advised patient with A1C @ 9.2 her glucose has been running high for the past 3 months, Insulin is needed at this time. She does not exercise and I explained she is
dependent on medicine to control diabetes.
Pt awake, alert, oriented, sitting up in her Wheelchair, eager for discharge, able to participate in discussion regarding diabetes plan of care.
Pt was weaned off steroids. kidney fxn nl, Cr 0.5, eGFR>60
NovoLog AC dose was adjusted 11/06 due to persistent Hyperglycemia, pt received 1st dose of 9 units @ Dinner, HS glucose 294.
Will resume Metformin 500mg BID, 1st dose this AM.
FBG 159, will increase Lantus to 15 units. Change from high to moderate corrective insulin
Will closely monitor premeal glucose levels today and further adjust AC dose if needed.
Diabetes History
- -
Type of Diabetes: 2
Pre-Admission Diabetes Regimen
Lab Results
Hemoglobin A1c 9.2 % (4.0-5.6) H 11/06/23 06:34
Insulin Pump Settings
IP Diabetes Regimen
11/07/23 11/07/23 11/07/23
11:58 17:38 21:05
POC Glucose 280 H 296 H 294 H
Patient Education
[2023-11-08] MEDS: PULMICORT 0.5 MG INH (07:39)
[2023-11-08] MEDS: DUONEB 3 ML INH ×2 (07:39→12:22)
[2023-11-08 08:02] LABS: Glucose - Point of Care 159 mg/dl (70-99)
[2023-11-08] MEDS: PROZAC 10 MG PO (08:58)
[2023-11-08] MEDS: DIOVAN 80 MG PO (08:58)
[2023-11-08] MEDS: PROCARDIA XL (EXTENDED RELEASE) 30 MG PO (08:58)
[2023-11-08] MEDS: NOVOLOG FLEXPEN 9 UNITS SC ×3 (08:59→17:48)
[2023-11-08] MEDS: NOVOLOG FLEXPEN-HIGH RESISTANCE 2 UNITS SC ×3 (09:00→17:48)
[2023-11-08] MEDS: TYLENOL 650 MG PO (09:45)
--- NOTE | 2023-11-08 11:52 | W.PN.HOSP.TC ---
Addendum entered and electronically signed by Mj Duque MD 11/08/23 18:04:
Case discussed with Dr. Hogan. Patient is medically stable for discharge on 5 further days of Ceftin/doxycycline. Prescriptions will also be sent for Pulmicort and DuoNebs. The patient will follow-up with pulmonary. And nebulizer machine will
be delivered to the patient's house tomorrow.
Total time spent on d/c = 40 min. This included today's physical exam, progress note, review of laboratory and diagnostic data, preparation of discharge documents and prescriptions, and discussions about the pt's hospital course and discharge plan
with the patient and other medical staff services coordinator involved in the patient's care.
Original Note:
Today's Communication/Plan
-
Discharged today if okay with pulmonary
Assessment / Plan
Assessment / Plan
Gen: Continues to remain NAD, AAOx3.
Eyes: EOMI, PERRLA, no scleral icterus.
Neck: supple.
CV: Continues to remain RRR, +S1/S2, no m/r/g.
Resp: B/L wheezes and rhonchi
Abd: +BS, soft, NT, ND
Skin: No rashes.
Neuro: CN 2-12 intact, non-focal.
Psych: Normal mood and affect.
CTA chest:
1. Limited secondary to contrast bolus timing and respiratory motion artifact. There is no central or segmental pulmonary embolus. Within the limitations, no subsegmental embolus is identified.
2. Changes of bronchiolitis and patchy consolidation throughout the right lower lobe. Right lower lobe moderate bronchial wall thickening. Right hilar adenopathy. Infection is the most likely differential consideration. Inflammatory etiologies
could also have a similar appearance.
Sepsis (POA) and acute asthma exac due to RLL PNA:
-with small amount of hemoptysis
-saturating well on RA
-cont Rocephin/Azithro for now
-s/p decadron (last dose 11/07/23)
-c/s pulm
DM2:
-Metformin restarted
-cont hi-res SSI/accuchecks/diabetic diet
-a1c 9.2%, patient will need basal bolus insulin until A1c is less than 9%
-cont Lantus 15U HS, premeal Novolog 9U
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
Other problems:
Hyponatremia, mild, resolved
Essential HTN: cont Procardia/Diovan
Chronic pain with chronic opioid use
Morbid obesity due to excess calories: BMI 45.5, encourage weight loss, affects all aspects of care.
FULL/SCDs
Anticipated Discharge: Today
Subjective/Interval History
-
Date of Service: November 08, 2023
Patient asking to go home. Denies shortness of breath.
Objective Data
-
Vital Signs:
Vital Signs
Temp Pulse Resp BP Pulse Ox
98.0 F 76 16 159/80 96
11/08/23 07:30 11/08/23 08:58 11/08/23 07:43 11/08/23 08:58 11/08/23 07:43
I&O
11/07/23 11/08/23 11/09/23
06:59 06:59 06:59
Intake Total 420 / 420
Output Total 1000 / 1000 2400 / 2400
Balance -1000 / -1000 -1979 /
[2023-11-08 11:55] LABS: Glucose - Point of Care 186 mg/dl (70-99)
[2023-11-08] MEDS: GLUCOPHAGE 500 MG PO ×2 (12:46→17:48)
--- NOTE | 2023-11-08 12:58 | CM ---
Addendum entered by Kaylynn Cortes 11/08/23 15:13:
nebulizer has not been ordered
Original Note:
Visit with Perri this afternoon; she is looking forward to returning home so she can 'freshen up' before her daughter's service on Monday. Perri will drive herself home; her is legally blind and cannot drive, however he is physically
able to assist Perri with any care needs she may have. Perri says she is 'the eyes' and he is 'the legs'.
Perri asked about a nebulizer, as she has been having respiratory treatments while here, although a home nebulizer has been ordered at this time.
[2023-11-08] MEDS: STERILE WATER FOR INJECTION 10 ML IV (13:08)
[2023-11-08] MEDS: ROCEPHIN 1000 MG IV (13:08)
[2023-11-08] MEDS: ZITHROMAX INFUSION 250 IV (13:09)
[2023-11-08 15:00] VITALS: BP 144/109
[2023-11-08] MEDS: DUONEB INH (16:08)
[2023-11-08 17:06] LABS: Glucose - Point of Care 181 mg/dl (70-99)
[2023-11-08] MEDS: LOVENOX 40 MG SC (17:49)
--- NOTE | 2023-11-08 18:04 | W.DCSUMMARY ---
Discharge Summary
Discharge Data
Date of Admission: 11/06/23
Date of Discharge: 11/08/23
-
Pending Results: No
Hospital Course
Primary diagnoses:
Sepsis and acute asthma exacerbation due to right lower lobe pneumonia
Secondary diagnoses:
Type 2 diabetes mellitus, uncontrolled
Hyponatremia
Essential hypertension
Chronic pain with chronic opioid use
Morbid obesity due to excess calories
Consultants:
Pulmonary
Diabetes nurse practitioner
Imaging:
CTA chest:
1. Limited secondary to contrast bolus timing and respiratory motion artifact. There is no central or segmental pulmonary embolus. Within the limitations, no subsegmental embolus is identified.
2. Changes of bronchiolitis and patchy consolidation throughout the right lower lobe. Right lower lobe moderate bronchial wall thickening. Right hilar adenopathy. Infection is the most likely differential consideration. Inflammatory etiologies
could also have a similar appearance.
78-year-old female presented with chief complaints of shortness of breath and hemoptysis as outlined in the H&P done on admission. Hospital course per problem list:
Sepsis and acute asthma exac due to RLL PNA: Imaging above. The patient also had a small amount of hemoptysis. She did not require supplemental oxygen while hospitalized. Patient was treated with Rocephin and azithromycin. She did receive IV
Decadron which was stopped prior to discharge. Pulmonary saw the patient in consultation. On discharge the patient was given 5 further days of Ceftin/doxycycline. She was also given prescriptions for nebulized Pulmicort and DuoNebs.
DM2: Patient's hemoglobin A1c was 9.2%. She was initiated on Lantus and Premeal NovoLog and doses were adjusted while hospitalized. Initially her metformin was held but then was restarted.
Discharge Plan
-
Patient Disposition: Home (Routine Discharge)
Discharge Diagnosis/Procedures: Sepsis and acute asthma exacerbation due to right lower lobe pneumonia
Diet: Diabetic, Carb Controlled
Activity: As tolerated
Driving Restrictions: As prior to admission
Referrals:
Tanisha Perdue DO [Family Provider] - in less than 1 week
Mj Rivas MD [Active] -
(AP OPERATOR visit next week
repeat CT in 3 mo and see rosa in 3 mo
revisit [facility], Asthma rx)
Prescriptions:
New
metformin 1,000 mg Tablet
1,000 mg PO BID@0800,1700 Qty: 60 0RF
insulin aspart U-100 [Novolog FlexPen U-100 Insulin] 100 unit/mL (3 mL) Insulin Pen
8 unit SC AC Qty: 5 0RF
Rx Instructions:
TAKE 8 UNITS OF INSULIN BEFORE EACH MEAL
insulin glargine [Lantus Solostar U-100 Insulin] 100 unit/mL (3 mL) Insulin Pen
15 unit SC HS Qty: 5 0RF
Rx Instructions:
TAKE 15 UNITS OF LANTUS DAILY AT BEDTIME
(DME) pen needle, diabetic [BD Ultra-Fine Carina Pen Needle] 32 gauge x 5/32' Needle
Qty: 200 0RF
Rx Instructions:
PT IS TAKING INSULIN 4 TIMES A DAY
ipratropium-albuterol 0.5 mg-3 mg(2.5 mg base)/3 mL Solution For Nebulization
3 ml inhalation R QID Qty: 120 0RF
budesonide 0.5 mg/2 mL Suspension For Nebulization
0.5 mg inhalation R BID Qty: 60 0RF
cefuroxime axetil 500 mg tablet
500 mg PO BID Qty: 10 0RF
doxycycline hyclate 100 mg capsule
100 mg PO BID Qty: 10 0RF
Continued
valsartan 80 mg Tablet
80 mg PO DAILY
nifedipine 30 mg Tablet Extended Release 24hr
30 mg PO DAILY
aspirin 81 mg Tablet,Delayed Release (Dr/Ec)
81 mg PO DAILY
fluoxetine [Prozac] 10 mg Capsule
10 mg PO DAILY
cinnamon bark [Cinnamon] 500 mg Capsule
500 mg PO DAILY
cholecalciferol (vitamin D3) [Vitamin D3] 25 mcg (1,000 unit) Tablet
25 mcg PO DAILY
omega 1-tul-bjp-fish oil [Fish Oil] 1,000 mg (120 mg-180 mg) Capsule
1 cap PO DAILY
alfalfa 250 mg Tablet
250 mg PO DAILY
Nutraful
1 cap PO DAILY
hydrocodone-acetaminophen 5-325 mg Tablet
0.5 tab PO Q6H PRN (Reason: headache)
dextromethorphan-guaifenesin [Safe Tussin DM] 10-100 mg/5 mL Liquid
5 ml PO Q4HPRN PRN (Reason: cough)
Discontinued
metformin 500 mg Tablet
1,500 mg PO DAILY
Patient Comments:
11/05/23-patient been taking 3 tablets instead of 2 tablet since her blood sugar been high
Discharge Orders:
Discharge Patient (As Directed); Ordered 11/08/23
Ordered By: Mj Duque
Discharge Date and Time
Print Language: LATVIAN
--- NOTE | 2023-11-08 18:07 | W.PN.PUL3 ---
Today's Communication / Plan
-
Transition to oral antibiotic therapy Ceftin/doxycycline
DuoNebs, budesonide will continue as outpatient
Short-term follow-up within 1 week
Nebulizer machine will be delivered to her house. Our office has coordinated
Reviewed with patient and
Disposition efforts
Assessment
-
78-year-old female with history of longstanding asthma, recurrent pneumonia/bronchitis, chronic cough, untreated sleep apnea, presents with 1 week of fevers, chills, chest congestion and hemoptysis. CT chest confirms right lower lobe pneumonia with
abnormal adenopathy. We are asked to comment on pulmonary findings
Community-acquired pneumonia, right lower lobe
Acute hemoptysis
Right hilar adenopathy
Fevers
Mild hyponatremia
Acute respiratory insufficiency
93% on room air
Hyperglycemia
Conditions present prior to admission
Hypertension
NIDDM
Sleep apnea, untreated
Wheelchair-bound
Back pain/knee pain
Chronic pain syndrome, opioid dependence
Morbid obesity
Plan/recommendations
At this time, patient appears to be improved objectively and subjectively
Although she still has some mild wheezing in rhonchi at the right base, overall air exchange and exam has improved significantly
She does feel her nebulizer helps her
She has not had any further hemoptysis
Moving forward
Continue with empiric treatment for community-acquired pneumonia
Continue Rocephin/azithromycin transition to oral regimen for 7 to 10-day course
Transition to Ceftin/doxycycline
She has been off steroids due to significant hyperglycemia
Decadron discontinued 11/06
Continue budesonide via nebulizer, continue DuoNebs 4 times a day
We will have our office facilitate nebulizer delivery and budesonide/DuoNebs
Repeat sputum culture. Initial specimen suboptimal
Suspect right hilar adenopathy secondary to infectious process but will require follow-up imaging in 3 months
Reviewed importance of revisiting sleep apnea treatment
Revisited importance of following up with pulmonary (Pt had appt with Dr. Rivas 10/24 but canceled due to family)
DVT prophylaxis: Patient on Lovenox. Patient is high risk. Monitor hemoptysis
GI prophylaxis: Not indicated
Okay for discharge. Follow-up instructions left in chart
We will need to be seen in the office next week by nurse practitioner
Will need follow-up imaging in 2 to 3 months to confirm resolution of adenopathy and pneumonia given hemoptysis
Reviewed with at bedside
Subjective Data
-
Date of Service:
Date of Service: November 08, 2023
Subjective:
Patient is subjectively improved, feels better but still with cough, wheezing. She is dressed in her wheelchair ready for discharge. is at the bedside. She denies chest pain, any further hemoptysis
Objective Data
Data Reviewed
Vital Signs / I&O / Oxygen:
Vital Signs
Temp Pulse Resp BP Pulse Ox
99.2 F 84 24 144/109 96
11/08/23 15:00 11/08/23 15:00 11/08/23 15:00 11/08/23 15:00 11/08/23 15:00
Intake and Output
11/07/23 11/08/23 11/09/23
06:59 06:59 06:59
Intake Total 420 / 420
Output Total 1000 / 1000 2400 / 2400
Balance -1000 / -1000 -1979 /
SaO2 96
Physical Exam
General: Comfortable
HEENT: Normocephalic and Anicteric
Cardiovascular: S1-S2, Regular Rhythm, Murmur (n) and Rub (n)
Respiratory: Wheeze (Mild), Crackles (n), Rhonchi (Few at right base), Non-Labored Respirations and Stridor (n)
GI: Soft, Non Distended (Obese) and Non Tender
Neurology: Awake, Alert and No Motor Deficits (Able to sit up without assistance)
Skin: Jaundice (n), Rash (n) and Bruising (n)
Labs/Micro/Reports
Lab Data
11/06/23 06:34
11/06/23 06:34
Microbiology
11/05/23 10:37 Blood/Venous Blood Culture - Preliminary
No Growth in 72 hours- Final report to follow
11/05/23 10:00 Blood/Venous Blood Culture - Preliminary
No Growth in 72 hours- Final report to follow
11/05/23 17:56 Sputum Respiratory Culture - Final
11/05/23 17:56 Sputum Gram Stain - Final
== END 2023-11-08 18:46 | disposition home or self-care (01) | DRG 871 ==
LOC: 4 WEST ACU 13:36
PROVIDERS: Nurse Practitioner; ADMITTING PHYSICIAN Internal Medicine; ATTENDING PHYSICIAN Internal Medicine; CONSULT PHYSICIAN Internal Medicine Critical Care Medicine; EMERGENCY PHYSICIAN Emergency Medicine; FAMILY PHYSICIAN Student in an Organized Health Care Education/Training Program
DX: A41.9 Sepsis, unspecified organism (principal); J18.9 Pneumonia, unspecified organism; J45.901 Unspecified asthma with (acute) exacerbation; E87.1 Hypo-osmolality and hyponatremia; Z68.42 Body mass index [BMI] 45.0-49.9, adult; R04.2 Hemoptysis; E11.65 Type 2 diabetes mellitus with hyperglycemia; I10 Essential (primary) hypertension; G89.4 Chronic pain syndrome; R59.0 Localized enlarged lymph nodes; E66.01 Morbid (severe) obesity due to excess calories; Z79.891 Long term (current) use of opiate analgesic; Z79.4 Long term (current) use of insulin
CPT/HCPCS: 71045; 71275; 80053; 82962; 83036; 83605; 84484; 85025; 85610; 86803; 87040; 87070; 87205; 87502; 87811; 93005; 94640; 96361; 96365; 96375; 99285; Q9967

== ENCOUNTER → 2024-08-22 10:26 | Outpatient (REF) | payer OTHER, SELFPAY | LOC: WDC 10:26 | PROVIDERS: ATTENDING PHYSICIAN Family Medicine | DX: N63.20 Unspecified lump in the left breast, unspecified quadrant (principal) | CPT/HCPCS: 76642; 77062; 77066 ==